=== PATIENT | female | born 1985 | race Two or more races ===

== ENCOUNTER 2016-10-02 18:59 | Inpatient (IN) | payer OTHER ==
[2016-10-02] MEDS ORDERED: IV START KIT ONE (19:39)
[2016-10-02] MEDS ORDERED: MINERAL OIL 25 ML BOT ONE (19:40)
[2016-10-02] MEDS ORDERED: PUMP TUBING ONE (19:40)
[2016-10-02] MEDS ORDERED: LACTATED RINGERS 1,000 ML ONE (19:40)
[2016-10-02] MEDS ORDERED: LIDOCAINE 1% (PRES FREE) 30 ML VIAL ONE (19:40)
[2016-10-02] MEDS ORDERED: OXYTOCIN 10 UNITS/ML VIAL ONE (19:40)
[2016-10-02] MEDS ORDERED: OXYTOCIN IN LR 500 ML IV ONE ×2 (19:40→21:30)
[2016-10-02] MEDS ORDERED: LIDOCAINE Viscous 2% 15 ML UDCUP ONE (19:40)
[2016-10-02] MEDS ORDERED: SODIUM CHLORIDE 0.9% FLUSH 10 ML ONE ×2 (19:41→21:35)
[2016-10-02 20:45] LABS: HEMATOCRIT 39.6 % (37.0-47.0); HEMOGLOBIN 13.5 gm/l (12.0-16.0); MEAN CELL VOLUME 84.8 fl (81.0-99.0); MEAN CORPUSCULAR HEMOGLOBIN 28.9 pg (27.0-31.0); MEAN CORPUSCULAR HGB CONC 34.1 g/dl (33.0-37.0); RED CELL DISTRIBUTION WIDTH 13.5 % (11.5-14.5)
[2016-10-02] MEDS: MISOPROSTOL 25 MCG TABLET SL PRN (21:23)
[2016-10-02] MEDS ORDERED: FAMOTIDINE 10 MG TABLET PO PRN (22:04)
[2016-10-02] MEDS ORDERED: ZOLPIDEM TARTRATE 5 MG TABLET PO PRN (22:04)
[2016-10-02 22:19] LABS: AMPHETAMINES/METHAMPHETAMINES NEGATIVE (NEGATIVE); COCAINE NEGATIVE (NEGATIVE); MARIJUANA NEGATIVE (NEGATIVE); METHADONE NEGATIVE (NEGATIVE); OPIATES NEGATIVE (NEGATIVE); TRICYCLIC ANTIDEPRESSANTS POSITIVE (NEGATIVE)
--- NOTE | 2016-10-02 22:49 | PCMAN ---
OB Admission Note - History : 5 Term: 4 : 1 Abortions (S&E): 1 Livin EDC:: 10/18/16 (By 5wk and 17wk u/s) Gestational Age (weeks): 37 Days (#/7): 5 Admit Cervical Dilation:: 3 Admit Cervical Effacement (%):: 30 (posterior, soft) Admit Station:: -3 Admit Presentaton:: cephalic Membrane Status: Intact Contractions: Yes Contraction Frequency:: irregular Heart Rate:: 135 (moderate/accels present/decels absent) Status:: cat. I EFW:: 6.5 Summary of Course:: Onset to care with [facility] at 15wks x 4 visits with YOEL to CNMs at 28wks x 20visit. Pre preg BMI 35, TWG 12lbs. Onset of Cholestasis at 22wks, MFM consult at [facility] gave recommendation for IOL at 37-38wks with biweekly NSTs starting at 29wks and initiation of ursodial tid. Positive ffn at 31wks and given betamethasone x2 and completed term gestation at 37w5d today. Onset of PUPPS at 32wks. 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 She has had neg UDS in this . She has been taking flexeril and vistaril for her PUPPS and acid reflux. - Labs Blood Type: A (+) positive Hct/Hgb:: 13.5 Rubella Status: Immune GBS Status: Negative Abnormal Labs: Other (elevated bile acids, positive ffn) - Review of Systems ROS neg - Physical Exam General: Afebrile Psych/Mental Status: Mood/Affect Appropriate, Judgment/Insight Intact, Bonding Well Neurological: Grossly Intact, Alert, Oriented x 4, Normal Gait, Normal Speech Lungs: Clear to Auscultation Bilaterally Cardiovascular: Regular Rate and Rhythm Genitourinary: Normal Female Genitalia Rectal Exam: Deferred Extremities: Full ROM Skin: Normal Color, Warm, Dry, Intact - Problems (1) Cholestasis during in third trimester Status: Acute Code: O26.613Assessment/Plan: A: with IUP at 37w5d Cholestasis of with MFM recommendation for delivery at 37-38wks Reactive surveillance starting at 32wks Positive Ffn at 31wks, received betamethasone injections x2 Membranes Intact, gbs neg FHT: Cat I, not appropriate for IA given Cholestasis OB hx: Cholestasis of with each [place] score: 4 P: Admit to FBC for cervical ripening and induction of labor d/t cholestasis and MFM recommendation for delivery at 37-38wks Reviewed low washington score and cervical ripening options. Will initiate with misoprostol 25mcg SL. Encouraged rest over night, will give rx for Ambien as needed.
[2016-10-02] MEDS: FAMOTIDINE 20 MG TABLET PO SCH (22:58)
[2016-10-03] MEDS: MISOPROSTOL 25 MCG TABLET SL PRN (01:35)
--- NOTE | 2016-10-03 01:41 | PDOC36 ---
Provider Note Subject: Labor Progress Note Note: S: Ancelmo feels occasional mild contractions. She has been able to sleep through them. O: VS: BP 107/52 P 57 T 35.8C SVE 2/40%/-3/posterior/soft Membranes Intact ctx q 3-7 mins, mild to palpation BSL 135 moderate variablility. pos accels, neg decels A: with IUP at 37w5d VSS Cholestasis of with MFM recommendation for delivery at 37-38wks Membranes Intact, gbs neg, afebrile Fetus Cat I Rebollar 4 P: Continue with cervical ripening. Continue with second dose of 50 mcg misoprostol SL. Encouraged to continue to rest. Anticipate continued cervical ripening, active labor and .
[2016-10-03 02:38] VITALS: BMI 36.3
--- NOTE | 2016-10-03 05:46 | PDOC36 ---
Provider Note Subject: Labor Progress Note Note: S: Ancelmo reports that the contractions are getting stronger. O: VS BP 112/56 P63 T 35.5C SVE 3/60%/-3/ BSL 135 moderate variability, pos accels, neg decels ctx q1.5-3 mins, lasting 50-80 sec A: with undelivered IUP at 37w5d VSS Cholestasis of with MFM recommendation for delivery at 37-38wks Membranes Intact, gbs neg, afebrile Fetus Cat I Rebollar 5 P: Considering how frequently she is bogdan and that contractions are becoming more painful, will hold next dose of miso and expectantly manage. Patient is planning an unmedicated . Plans to shower at this time. Will comtinue cEFM due to cholestasis. Handoff to oncoming CNM about course of induction so far. Reevaluate in 2-4 hours or when clinically indicated. Anticipate active labor and .
[2016-10-03] MEDS ORDERED: CALCIUM CARBONATE 500 MG TAB.CHEW PO PRN ×2 (08:24→14:06)
--- NOTE | 2016-10-03 09:01 | PDOC36 ---
Provider Note Subject: CNM progress note Note: S: Contractions are getting harder but not too painful yet. O: FHR 140's, reactive, mod variability, accels present no decels, category 1 Contractions q 3-4, some coupling, 40 sec, mild to mod Cx 4/80/-1 AROM clear A: Progress with induction P: AROM done. Will start pitocin in 1-2 hours if not active. Anticipate .
[2016-10-03] MEDS ORDERED: FENTANYL 100 MCG/2 ML VIAL IV ONE (09:40)
[2016-10-03] MEDS ORDERED: FENTANYL 100 MCG/2 ML VIAL IV PRN (11:45)
[2016-10-03] MEDS ORDERED: FENTANYL 100 MCG/2 ML VIAL ONE ×2 (11:45→12:29)
--- NOTE | 2016-10-03 11:54 | PDOC36 ---
Provider Note Subject: CNM progress note Note: S: Much more painful. Requesting more medication. O: FHR 120, moderate variability, some early decels with contractions- not persistent Contractions q 2-3, 45-50, mod-firm cx 7-8/95%/-1 A: Good progress P: Fentanyl 50 mcg Anticipate
[2016-10-03] MEDS: LACTATED RINGERS 1,000 ML IV PRN (12:15)
[2016-10-03] MEDS ORDERED: EPIDURAL PROCEDURE TRAY ONE (12:24)
[2016-10-03] MEDS ORDERED: IV START KIT ONE (12:25)
[2016-10-03] MEDS ORDERED: SODIUM CHLORIDE 0.9% FLUSH 10 ML ONE (12:25)
[2016-10-03] MEDS ORDERED: LIDOCAINE 2% (PRES FREE) 5 ML VIAL ONE (12:29)
[2016-10-03] MEDS ORDERED: PNEUMOCOCCAL 23-VAL P-SAC VAC 0.5 ML VIAL IM V ONE (13:47)
[2016-10-03] MEDS ORDERED: IBUPROFEN 800 MG TABLET PO SCH (14:06)
[2016-10-03] MEDS ORDERED: LANOLIN 50 APPLIC/7G TUBE TP PRN (14:06)
[2016-10-03] MEDS ORDERED: BENZOCAINE/MENTHOL 60 APPLIC/BOT TP PRN (14:06)
[2016-10-03] MEDS: ACETAMINOPHEN 325 MG TABLET PO PRN ×2 (14:27→19:22)
--- NOTE | 2016-10-03 17:42 | PCMDEL ---
Delivery Note - Labor 1st stage (hr/min):: 4 hrs 52 min 2nd stage (hr/min):: 0 hrs 05 min 3rd stage (hr/min):: 0 hrs 06 min Total (hr/min):: 5 hrs 03 min - Delivery Delivery (Date): 10/03/16 Delivery (Time): 13:10 Infant Gender: Female Weight: 7 lb 14 oz Length: 1 ft 9 in Presentation: Cephalic Position: OA Umbilical Cord: 3 Vessel Delayed Cord Clamping:: 2-3 min 1 Minute Total: 9 5 Minute Total: 9 Placenta:: Lieberman I and C EBL:: 100 Perineum:: intact Suture:: none Anesthesia/Meds:: Fentanyl x 2 Length ROM:: 5 hours Comments:: Rapid with baby rotating OP to OA with pushing. Baby given directly to mother for skin to skin. Cord clamped x2 after pulsing stopped then cut by father of baby. AMTSL done immediately. Spont del lieberman placenta intact and complete. Perineum intact. Excellent bonding.
[2016-10-03] MEDS: FAMOTIDINE 20 MG TABLET PO SCH (20:08)
[2016-10-03] MEDS: HYDROCODONE/ACETAMINOPHEN 5/325MG TABLET PO PRN (20:30)
[2016-10-03] MEDS: DOCUSATE SODIUM 100 MG CAPSULE PO PRN (20:31)
[2016-10-04] MEDS: ACETAMINOPHEN 325 MG TABLET PO PRN ×2 (02:54→07:55)
[2016-10-04] MEDS: HYDROCODONE/ACETAMINOPHEN 5/325MG TABLET PO PRN ×2 (02:55→07:55)
[2016-10-04 06:50] LABS: HEMATOCRIT 36.1 % (37.0-47.0); HEMOGLOBIN 12.2 gm/l (12.0-16.0)
[2016-10-04] MEDS: DOCUSATE SODIUM 100 MG CAPSULE PO PRN (07:55)
[2016-10-04] MEDS ORDERED: DOCUSATE SODIUM 100 MG CAPSULE PO SCH (10:30)
[2016-10-04] MEDS ORDERED: IV START KIT ONE (13:39)
[2016-10-04] MEDS ORDERED: LACTATED RINGERS 1,000 ML ONE (13:39)
[2016-10-04] MEDS: LACTATED RINGERS 1,000 ML IV PRN (13:55)
[2016-10-04] MEDS ORDERED: FAMOTIDINE 20 MG TABLET PO PRN (14:49)
--- NOTE | 2016-10-04 15:06 | PDOC44 ---
- Subjective Day: 1 Ancelmo is doing well today. She feels that her went well. is going well. She is ready for the tubal this afternoon. Her back is somewhat painful but is relieved with medications. Reviewed that afterpains are worse after multiple deliveries. Reports Flatus, Reports Pain Tolerable, Reports , Reports Lochia Light, Reports Tolerating Regular Diet (had breakfast, then has been NPO in prep for surgery.) - Objective Temp Pulse Resp BP Pulse Ox 98.1 F 57 18 95/58 10/04/16 14:38 10/04/16 14:38 10/04/16 14:38 10/04/16 14:38 Lab Results 10/04/16 06:25 Hgb 12.2 Hct 36.1 L Current Medications Generic Name Dose Route Start Last Admin Trade Name Freq PRN Reason Stop Dose Admin Acetaminophen 325 - 650 mg 10/03/16 14:06 10/04/16 07:55 Tylenol PO 325 mg Q4H PRN Administration Pain (Mild) Acetaminophen/Hydrocodone Bitart 1 - 2 tab 10/03/16 14:06 10/04/16 07:55 Ashton 5/325 PO 1 tab Q4H PRN Administration Pain (Moderate) Benzocaine/Menthol 1 applic 10/03/16 14:06 Dermoplast TP PRN PRN Patient Comfort Calcium Carbonate/Glycine 500 - 1,000 mg 10/03/16 14:06 Tums PO BID PRN Indigestion Docusate Sodium 100 mg 10/04/16 10:30 Colace PO BID RADHA Emollient Ointment 1 applic 10/03/16 14:06 Sej-S-Kdlzux TP PRN PRN sore nipples Famotidine 10 mg 10/04/16 14:49 Pepcid PO PRN PRN Bloating,Gas,Abd Distension Sodium Chloride 10 ml 10/03/16 14:06 Normal Saline 10ml Flush IV PRN PRN IV Flush - Physical Exam General: Afebrile Psych/Mental Status: Mood/Affect Appropriate, Judgment/Insight Intact, Bonding Well Neurological: Grossly Intact, Alert, Oriented x 4 HEENT: Atraumatic Lungs: Clear to Auscultation Bilaterally, Normal Air Movement Cardiovascular: Regular Rate and Rhythm, Normal S1, Normal S2 Breast: Soft, Skin intact, Nipples Intact Fundus: Firm, Midline, Below Umbilicus Genitourinary: Normal Female Genitalia Lochia: Light Rectal Exam: Deferred - Problems:Assessment/Plan (1) Cholestasis during in third trimester Status: AcuteAssessment/Plan: A: with IUP at 37w5d Cholestasis of with MFM recommendation for delivery at 37-38wks Reactive surveillance starting at 32wks Positive Ffn at 31wks, received betamethasone injections x2 Membranes Intact, gbs neg FHT: Cat I, not appropriate for IA given Cholestasis OB hx: Cholestasis of with each [place] score: 4 P: Admit to FBC for cervical ripening and induction of labor d/t cholestasis and MFM recommendation for delivery at 37-38wks Reviewed low washington score and cervical ripening options. Will initiate with misoprostol 25mcg SL. Encouraged rest over night, will give rx for Ambien as needed. (2) care following vaginal delivery Status: Acute Disposition: Anticipate DC Home Tomorrow
[2016-10-04] MEDS ORDERED: PROPOFOL 20 ML IV ONE (15:12)
[2016-10-04] MEDS ORDERED: SPINAL PROCEDURAL TRAY 1 EACH ONE (15:12)
[2016-10-04] MEDS ORDERED: BUPIVACAINE 0.75% SPINAL AMPUL 2 ML ONE (15:12)
[2016-10-04] MEDS ORDERED: FENTANYL 100 MCG/2 ML VIAL ONE (15:13)
[2016-10-04] MEDS ORDERED: MIDAZOLAM HCL 5 MG/5 ML VIAL ONE (15:13)
[2016-10-04] MEDS ORDERED: MORPHINE SULFATE (DURAMORPH) 1 MG/ML 10ML AMP ONE (15:13)
[2016-10-04] MEDS ORDERED: KETOROLAC TROMETHAMINE 30 MG/ML 1 ML VIAL ONE (15:17)
[2016-10-04] MEDS ORDERED: HYDROMORPHONE HCL 1 MG/ML SYRINGE IV PRN (15:30)
[2016-10-04] MEDS ORDERED: DIPHENHYDRAMINE HCL 50 MG/1 ML VIAL IV PRN (15:30)
[2016-10-04] MEDS ORDERED: MORPHINE SULFATE 2 MG/ML SYRINGE IV PRN (15:30)
[2016-10-04] MEDS ORDERED: ONDANSETRON 4 MG/2ML 2 ML VIAL IV PRN (15:30)
[2016-10-04] MEDS ORDERED: EPHEDRINE SULFATE 50 MG/ML 1ML VIAL IV PRN (15:30)
[2016-10-04] MEDS ORDERED: MORPHINE SULFATE 10 MG/ML SYRINGE IV PRN (15:30)
[2016-10-04] MEDS ORDERED: PROMETHAZINE HCL 25 MG/ML VIAL IM PRN (15:30)
[2016-10-04] MEDS ORDERED: HYDROMORPHONE HCL 2 MG/ML SYRINGE IV PRN (15:30)
[2016-10-04] MEDS ORDERED: NALBUPHINE HCL 20 MG/ML AMP IV PRN (15:30)
[2016-10-04] MEDS ORDERED: NALOXONE HCL 0.4 MG/ML VIAL IV PRN (15:30)
[2016-10-04] MEDS ORDERED: MORPHINE SULFATE 4 MG/ML SYRINGE IV PRN (15:30)
[2016-10-04] MEDS ORDERED: LACTATED RINGERS 1,000 ML IV SCH (15:45)
--- NOTE | 2016-10-04 16:43 | PCMBPN ---
Brief Post Op Note: Date of Procedure: 10/04/16 Start Time: [] Preoperative Diagnosis: 1. [desires permanent sterilization] Postoperative Diagnosis: 1. [Same] Procedure: [ BTL] Surgeon: Leticia Lantigua DO Assist:[] Anesthesia: [spinal] Findings: [normal appearing uterus, tubes] Condition: [stable] Complications: [none] IV Fluids: [1000] mLs of LR [] Urine Output: [] mLs Estimated Blood Loss: [5] mLs Tourniquet Time: [N/A] Specimens: [N/A] Implants: [] Drains: [N/A]
[2016-10-04] MEDS ORDERED: LACTATED RINGERS 1,000 ML IV.SOLN ONE (16:47)
[2016-10-04] MEDS ORDERED: LANOLIN 50 APPLIC/7G TUBE TP PRN (17:00)
[2016-10-04] MEDS ORDERED: BENZOCAINE/MENTHOL 60 APPLIC/BOT TP PRN (17:00)
--- NOTE | 2016-10-04 21:16 | OP ---
TANIA FIGUEREDO [id number] DATE OF : 1985 DESCRIPTION OF PROCEDURE: 10/04/2016 PREOPERATIVE DIAGNOSIS: Desires permanent sterilization. POSTOPERATIVE DIAGNOSIS: Desires permanent sterilization. PROCEDURE: bilateral tubal ligation. SURGEON: Dr. Latosha Lantigua ANESTHESIA: Spinal. FINDINGS: Normal appearing uterus and tubes. CONDITION: Stable. COMPLICATIONS: None. IV FLUIDS: One liter of lactated Ringer's. ESTIMATED BLOOD LOSS: 5 mL SPECIMENS: Portion of bilateral Fallopian tubes. IMPLANTS: None. DRAINS: None. PROCEDURE: The patient was taken back to the OR where spinal anesthesia was found to be adequate. She was prepped and draped in a dorsal supine position in a normal sterile fashion. An approximately 1 1/2 inch infraumbilical incision was made. The incision was carried-down to the fascia with Metzenbaum scissors. The fascia was grasped with an Allis clamp and elevated and Metzenbaum scissors were used to enter the abdominal cavity. The sweep of my finger around the area of the incision found no intraabdominal adhesions. A small Silas retractor was introduced into the abdominal cavity and intraabdominal survey revealed a fundus. The uterus was walked to the patient's right and the left Fallopian tube was identified, grasped with a Sam clamp and walked-out to its fimbriated end to ensure appropriate identification. The isthmic portion of the Fallopian tube was then grasped with a Sam clamp and an approximately 3 cm segment of tube was then doubly ligated using 3-0 plain. Then the approximately 3 cm section of tube was excised using Metzenbaum scissors. The cut ends were then cauterized with the Bovie electrocautery device and hemostasis was identified. The right tube was then reintroduced into the abdominal cavity and the same procedure was performed on the patient's left. The left tube was walked-out to its fimbriated end and an approximately 3 cm section of tube was ligated and then cut with the Metzenbaum scissors. Hemostasis was achieved with electrocautery on the cut sides of the Fallopian tube and the tube was returned to the abdominal cavity. A last look was taken at both operative sites and again hemostasis was identified. The Silas retractor was removed from the abdominal cavity. The abdominal fascia was identified and closed with 0-Vicryl suture. The subcutaneous tissue was reapproximated using 4-0 Vicryl and the skin was closed with 4-0 Vicryl and then covered with Steri-Strips. The patient was easily roused from anesthesia and taken to recovery in stable condition.
[2016-10-05] MEDS: OXYCODONE/ACETAMINOPHEN 5/325 MG TABLET PO PRN ×2 (01:11→09:44)
[2016-10-05] MEDS ORDERED: DIPHENHYDRAMINE HCL 25 MG CAPSULE PO PRN (09:55)
[2016-10-05] MEDS ORDERED: DOCUSATE SODIUM 100 MG CAPSULE PO SCH (10:00)
[2016-10-05 10:03] VITALS: BP 109/56
--- NOTE | 2016-10-05 10:06 | PDOC36 ---
Provider Note Subject: Post-op check Note: S: Sore but OK. Also itching since the surgery. Surgery discussed. Wound care discussed. O: Red head. Incision excellent. Steristrips in place. No rash, itching prob from the spinal. No infection, no bleeding. Imp: Normal post-op Plan: Routine care.
--- NOTE | 2016-10-05 10:11 | PDOC39B ---
Hospital Course: ADMIT DATE: 10/02/16 DISCHARGE DATE: 10/05/2016 ADMISSION DIAGNOSES: Active Labor PROCEDURES: HISTORY OF PRESENT ILLNESS: 31 year old G5 T4 L5 at 37 weeks 6 days presenting with active labor. HOSPITAL COURSE: The patient is doing well this morning. She reports having moderate uetrine cramping that is relieved with percocet. She cannot take Ibuprofen because of gastric issues. She was seen by Dr. Pardo this morning and her tubal incision is clean and dry. Having some mild body itching from her spinal yesterday. Her lochia is light. Ambulating, eating and drinking. Ready to go home and see her other children. No problems noted with breast feeding. By day of discharge the patient is stable, well and ready to go home. - Physical Exam Vital Signs: Temp Pulse Resp BP Pulse Ox 98.5 F 65 17 97/56 10/05/16 01:12 10/05/16 01:12 10/05/16 01:12 10/05/16 01:12 General: Afebrile Psych/Mental Status: Mood/Affect Appropriate Neurological: Alert Cardiovascular: Regular Rate and Rhythm Breast: Soft, Skin intact Fundus: Firm Genitourinary: Normal Female Genitalia Lochia: Light Skin: Other (Itching) Wound: Dressing in Place, Dressing Clean/Dry/Intact, Well Approximated - Discharge Diagnosis (1) Normal course Status: AcuteAssessment/Plan: A/ Day 2 s/p vaginal after IOL for Cholestasis and bilateral tubal ligation Breast feeding P/ D/C Home today with baby F/U in 7 days with MD for tubal check F/U in 2 weeks with CMNs - Discharge Plan Condition: Good Disposition: Home Additional Instructions: Midwifery 'After the ' handout given to patient. Prescriptions: Docusate Sodium [COLACE 100 MG CAPSULE (SHF)] 100 mg PO DAILY PRN #30 cap PRN Reason: Constipation Ibuprofen [Motrin] 800 mg PO Q8H PRN #120 tablet PRN Reason: Pain FERROUS SULFATE (65 Fe) [IRON FERROUS SULFATE 325 MG TABLET (SHF)] 325 mg PO BID #60 tab Oxycodone HCl [ROXICODONE 5 MG IR TABLET (SHF)] 5 - 10 mg PO Q6H PRN #30 tab PRN Reason: Pain Follow-Up: Anum Salcido CNM [Certified Nurse Gasket Supervisor] - In 2 weeks Sarina Pardo MD [Staff Physician] - In 7-10 days
[2016-10-05] MEDS ORDERED: IV START KIT ONE (15:30)
--- NOTE | 2016-10-09 15:26 | SURGPATH ---
[facility] [address] [place] [id number] Patient Name: TANIA FIGUEREDO MR#: [id number] : 1985 Gender: F Specimen #: [id number] Collected: 10/04/2016 Received: 10/08/2016 Reported: 10/09/2016 Submitting Phys: RYANN SPANN Copy To Phys: [facility] Clinical History / Pre-Operative Diagnosis: NONE PROVIDED Specimen Source / Surgical Procedure Performed: RIGHT FALLOPIAN TUBE SEGMENT (WITH STITCH), LEFT FALLOPIAN TUBE SEGMENT Interpretation: FALLOPIAN TUBES, RIGHT AND LEFT, TUBAL LIGATION: - COMPLETE CROSS SECTIONS OF RIGHT AND LEFT FALLOPIAN TUBES Electronically Signed Out Yael Pedraza M.D. Gross Description: The specimen is received in a formalin filled container labeled with the patient's name and "bilateral fallopian tube segments". Two cylindrical segments of moctezuma tissue are 1.3 x 0.5 cm and 1.6 x 0.5 cm. The segment identified as right is inked black. A sales representative groceries cross section of each is submitted in one cassette. Duglas Cunningham Microscopic Description: Complete cross-sections of inked and uninked fallopian tubes are seen, without significant pathologic changes. 1: 36088(7) Z30.2
== END 2016-10-05 12:49 | disposition home or self-care (01) | DRG 767 ==
LOC: FBC 18:59 → EDSTATUS 10-18 10:01
PROVIDERS: ADMIT Advanced Practice Midwife; ATTEND Advanced Practice Midwife
PROC: 3E0P7GC Introduction of Other Therapeutic Substance into Female Reproductive, Via Natural or Artificial Opening (ICD-10-PCS; 2016-10-02)
PROC: 10E0XZZ Delivery of Products of Conception, External Approach (ICD-10-PCS; principal; 2016-10-03)
PROC: 10907ZC Drainage of Amniotic Fluid, Therapeutic from Products of Conception, Via Natural or Artificial Opening (ICD-10-PCS; 2016-10-03)
PROC: 0UL70ZZ Occlusion of Bilateral Fallopian Tubes, Open Approach (ICD-10-PCS; 2016-10-04)
DX: O26.62 Liver and biliary tract disorders in childbirth (principal); K83.1 Obstruction of bile duct; O09.43 Supervision of pregnancy with grand multiparity, third trimester; Z30.2 Encounter for sterilization; Z3A.37 37 weeks gestation of pregnancy; Z37.0 Single live birth